=== PATIENT | female | born 1950 | race Caucasian/White ===

== ENCOUNTER 2017-09-27 14:56 | Emergency (ER) | payer MEDICARE ==
[~2017-09-27] VITALS: Ht 165.1 cm; Wt 136.3 kg
[~2017-09-27 14:56] MED LIST: AMLO10TA2 PO; ASPI325T8 PO; BUPR75TA6 PO; CRESTOR20 MG PO; ESCITALOPRAM OX20 MG PO; INSU200I SQ; INSU300I SQ; LEVO125T PO; LOSA1TAB25 PO; MAGN400T22 PO; METF10002 PO; METO-247 PO; OMEP40CA5 PO
[2017-09-27 15:15] VITALS: BP 149/101
[2017-09-27] MEDS: INSULIN REGULAR 100 UNIT/ML 10ML VIAL. SQ ONE (15:32)
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
== END 2017-09-27 16:30 | disposition home or self-care (01) ==
LOC: ER 14:56
DX: Z04.1 Encounter for examination and observation following transport accident (principal); R51 Headache; I11.0 Hypertensive heart disease with heart failure; I50.9 Heart failure, unspecified; E11.65 Type 2 diabetes mellitus with hyperglycemia; E66.01 Morbid (severe) obesity due to excess calories; I71.9 Aortic aneurysm of unspecified site, without rupture; Z68.43 Body mass index [BMI] 50.0-59.9, adult; Z88.5 Allergy status to narcotic agent; V79.9XXA Bus occupant (driver) (passenger) injured in unspecified traffic accident, initial encounter; Y93.89 Activity, other specified; Y99.8 Other external cause status; Y92.488 Other paved roadways as the place of occurrence of the external cause
CPT/HCPCS: 71046; 82947; 96372; 99285; J1815